=== PATIENT | female | born 2000 | race Caucasian/White ===

== ENCOUNTER → 2023-09-15 09:44 | Outpatient (REF) | payer OTHER, SELFPAY | LOC: CPAP 09:44 | PROVIDERS: ATTENDING PHYSICIAN Obstetrics & Gynecology | DX: Z01.419 Encounter for gynecological examination (general) (routine) without abnormal findings (principal); Z12.4 Encounter for screening for malignant neoplasm of cervix | CPT/HCPCS: G0123 ==